=== PATIENT | female | born 2000 | race Caucasian/White ===

== ENCOUNTER 2020-12-25 21:29 | Emergency (ER) | payer SELFPAY ==
[2020-12-25] MEDS ORDERED: predniSONE 20 MG TAB PO ONE (22:10)
[2020-12-25] MEDS ORDERED: PROMETHAZINE HCL INJ 25 MG in SODIUM CHLORIDE 0.9% 50ML 50 ML IVPB ONE (22:10)
[2020-12-25] MEDS ORDERED: HYDROcodone 7.5MG/APAP 325MG 1 EA TAB PO ONE (22:10)
[2020-12-25] MEDS ORDERED: SODIUM CHLORIDE 0.9% 1000ML 1,000 ML IVS ONE (22:10)
--- NOTE | 2020-12-25 22:28 | ED.PDOC ---
History of Present Illness - General Time Seen by Provider: 12/25/20 22:00 Source: patient Exam Limitations: no limitations - History of Present Illness Initial Comments: The patient is a 20-year-old female presented emergency room secondary to a refractory migraine headache. Headache has been present for about 2 days. She has some mild nausea vomiting. Headache is typical for her. She has had migraine headaches for numerous years and does have a neurologist that helps to manage none. She reports that after they have been present for a day or 2 she normally requires IV fluids and some nausea medications to knock them. No new symptoms with this 1. No focal neurological deficits otherwise. She is bothered by loud sounds and bright lights. Timing/Duration: other - 2 days Severity: moderate Improving Factors: nothing Worsening Factors: movement Associated Symptoms: headaches, loss of appetite, malaise, nausea/vomiting Allergies/Adverse Reactions: Allergies Sumatriptan Allergy (Verified 12/25/20 22:44) Review of Systems - Review of Systems Constitutional: States: malaise EENTM: States: no symptoms reported Respiratory: States: no symptoms reported Cardiology: States: no symptoms reported Gastrointestinal/Abdominal: States: see HPI Musculoskeletal: States: no symptoms reported Skin: States: no symptoms reported Neurological: States: see HPI Endocrine: States: no symptoms reported All other Systems: No Change from Baseline Family Medical History - Family History Mother Family History: Unknown Physical Exam - Physical Exam General Appearance: Alert, Comfortable, No apparent distress Eye Exam: bilateral normal Ears, Nose, Throat: hearing grossly normal Neck: non-tender, full range of motion Respiratory: no respiratory distress, no accessory muscle use Cardiovascular/Chest: normal peripheral pulses, no edema Peripheral Pulses: radial,right: 2+, radial,left: 2+ Gastrointestinal/Abdominal: non tender, soft Rectal Exam: deferred Extremity: normal range of motion, no pedal edema, normal capillary refill 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 The patient has received a dose of the pain medication, steroid, IV fluids and nausea medication. She needs to contact her neurologist tomorrow. ER warnings are given. [email or web address] [id number] Departure - Departure Clinical Impression: Migraine headache with aura Qualifiers: Status migrainosus presence: without status migrainosus Intractability: not intractable Qualified Code(s): G43.109 - Migraine with aura, not intractable, without status migrainosus Disposition: Discharge to Home or Self Care Condition: Fair Instructions: Migraines in Adults Diet: regular diet Activity: increase activity as tolerated Referrals: Todd Obrien MD [Primary Care Provider] - 1-2 Weeks Additional Instructions: Patient is a 20-year-old presenting with a refractory migraine headache. The patient has received a dose of the pain medication, steroid, IV fluids and nausea medication. She needs to contact her neurologist tomorrow. ER warnings are given.
[2020-12-26 00:46] VITALS: BP 109/64; TEMP 98.1; O2SAT 99
== END 2020-12-26 00:30 | disposition home or self-care (01) ==
LOC: ER 21:29
DX: G43.109 Migraine with aura, not intractable, without status migrainosus (principal); Z88.8 Allergy status to other drugs, medicaments and biological substances
CPT/HCPCS: A4216; J2550; J7030; J7512